=== PATIENT | female | born 2005 | race Caucasian/White ===

== ENCOUNTER 2023-08-20 10:20 | Emergency (ER) | payer BC, SELFPAY ==
--- NOTE | 2023-08-20 10:32 | ED.FEMALEGU ---
HPI - Female Genitourinary General Chief complaint: Urogenital-Female Stated complaint: FB VAGINA Source: patient and RN notes reviewed Mode of arrival: ambulatory Limitations: no limitations History of Present Illness HPI Narrative: 17 y/o female presented for c/o possible retained tampon. LMP 08/04. Endorses lower abdominal cramping intermittently for a week. Also reports thick milky drainage. Reports constipation and noticed blood in toilet today after BM. Denies n/v/d. Denies concern for or std. Patient states she is extremely nervous about this condition and exam. Related Data Home Medications Medication Instructions Recorded Confirmed bupropion HCl 150 mg 24 hr tablet, mg PO 08/20/23 extended release fluoxetine 40 mg capsule mg 08/20/23 lisdexamfetamine 30 mg capsule mg 08/20/23 Allergies Allergy/AdvReac Type Severity Reaction Status Date / Time No Known Allergies Allergy Verified 08/20/23 10:34 Review of Systems Review of Systems: CONSTITUTIONAL: Denies body aches, fever, chills, or sweats. CARDIOVASCULAR: Denies chest pain, palpitations, or edema. RESPIRATORY: Denies cough or dyspnea. GASTROINTESTINAL: Denies abdominal pain, nausea, vomiting, or diarrhea. GENITOURINARY: Reports dysuria, frequency, urgency, hematuria, flank pain SKIN: Denies rash, itching, or wounds. MUSCULOSKELETAL: Denies back pain or myalgia. [facility] Past Medical History Medical History Depression Comments At time of signature, I have reviewed and agree with nursing past medical, surgical, social and family history unless otherwise noted. Please see nursing chart for further information. There is no relevant family history pertinent to the presenting complaint Exam Narrative: GENERAL: Well-appearing and in no acute distress. HEAD: Normocephalic EYES: EOMI. . ENT: Mucous membranes pink and moist. NECK: Normal AROM. Supple. CHEST: No respiratory distress. Clear to auscultation. HEART: Regular rate and rhythm. ABDOMEN: Soft, nontender, nondistended, normal active bowel sounds. No CVA tenderness : Speculum Exam - Vagina: normal vaginal introitus, pink without bleeding, foreign body, laceration or lesions. Moderate amount of thick white discharge. No swelling or odor. Nontender, however pt was minimally tolerate of the speculum. Exam was limited and stopped prior to full direct visualization of the cervix as Patient was crying. Chaperoned by Subha RN SKIN: Warm, dry, no rash. NEURO: No focal deficits. Alert and oriented x3. Gait steady. PSYCH: Anxious Course Course Emergency Course: Patient is aware of diagnosis, understands and agrees to treatment plan. Anticipatory guidance given. Patient agrees to follow-up as directed and is aware of reasons to seek care at the emergency department. Portions of this record may have been created with voice recognition software Level of Care: Express Care Visit Vital Signs Vital signs: Vital Signs Temperature 97.8 F 08/20/23 10:35 Pulse Rate 88 08/20/23 10:35 Respiratory Rate 16 08/20/23 10:35 Blood Pressure 128/84 08/20/23 10:35 Pulse Oximetry 100 08/20/23 10:35 Temperature 97.8 F 08/20/23 10:35 Pulse Rate 88 08/20/23 10:35 Respiratory Rate 16 08/20/23 10:35 Blood Pressure 128/84 08/20/23 10:35 Pulse Oximetry 100 08/20/23 10:35 Reviewed MDM - Female Genitourinary MDM Narrative Medical decision making narrative: Upon arrival, pt appeared anxious, repeatedly stated I don't like things going into my vagina. Patient does not have an OBGYN and is from [place]. Discussed physical exam findings, she is aware of the vaginal discharge, no apparent retained FB, but unable to complete the full exam due to tolerance. Pt denies concern for STD, denies urinary complaints. Advised supportive measures, advised against use of tampons for now, and reviewed signs/sympt
[2023-08-20 10:35] VITALS: BP 128/84; PULSE 88; RESP 16; TEMP 36.6; O2SAT 100
--- NOTE | 2023-08-20 10:57 | PC.NURSE ---
Pelvic exam using speculum completed by provider. Franklyn RN
== END 2023-08-20 11:10 | disposition home or self-care (01) ==
PROVIDERS: Emergency Provider Nurse Practitioner Family
DX: R10.2 Pelvic and perineal pain (principal); F32.9 Major depressive disorder, single episode, unspecified
CPT/HCPCS: 99214; G0463